=== PATIENT | female | born 1955 | race Native Hawaiian/Other Pacific Islander ===

== ENCOUNTER 2022-07-17 12:02 | Outpatient (CLI) | payer OTHER | END 2022-07-17 19:08 | disposition home or self-care (01) | LOC: US 12:02 | PROVIDERS: ATTEND Nurse Practitioner Family | DX: R59.0 Localized enlarged lymph nodes (principal); J02.9 Acute pharyngitis, unspecified ==

== ENCOUNTER 2022-07-24 12:12 | Outpatient (CLI) | payer OTHER | END 2022-07-24 18:57 | disposition home or self-care (01) | LOC: CT 12:12 | PROVIDERS: ATTEND Internal Medicine | DX: R59.0 Localized enlarged lymph nodes (principal) | CPT/HCPCS: 36415; 82565; 84520; Q9963 ==